=== PATIENT | male | born 1960 | race Caucasian/White ===

== ENCOUNTER 2021-09-17 09:52 | Emergency (ER) | payer MEDICAID, OTHER ==
[~2021-09-17] VITALS: Ht 190.5 cm; Wt 176.4 kg
[~2021-09-17 09:52] MED LIST: AMLO-489; LISI-283
[2021-09-17 11:08] VITALS: BP 135/63
[2021-09-17] MEDS ORDERED: NYS15TP TOP (12:31)
== END 2021-09-17 12:42 | disposition home or self-care (01) ==
LOC: ER 09:52
DX: L30.8 Other specified dermatitis (principal); I10 Essential (primary) hypertension; E11.9 Type 2 diabetes mellitus without complications; Z79.899 Other long term (current) drug therapy